=== PATIENT | female | born 1955 | race African-American/Black ===

== ENCOUNTER 2017-04-24 06:06 | Day surgery (SDC) | payer MEDICARE ==
[2017-04-22 11:15] LABS: BASOPHILS 0.2 % (0-2); EOSINOPHILS 1.6 % (0-7); HEMATOCRIT 28.8 % (36.0-48.0); HEMOGLOBIN 9.1 g/dL (12-16); IMMATURE GRANULOCYTES 0.2 % (0-5); LYMPHOCYTES 32.8 % (15-50); MCHC 31.6 g/dL (31.0-37.0); MEAN PLATELET VOLUME 10.4 fL (7.4-10.4); MONOCYTES 8.5 % (2-11); NEUTROPHILS 56.7 % (40-80); PLATELET COUNT 178 10x3/uL (130-400); RBC 3.03 10x6/uL (4.00-5.40); RDW 13.7 % (11.5-14.5); WBC 5.5 10x3/uL (4.8-10.8)
[2017-04-22 11:23] LABS: APTT 31.6 SECONDS (22.8-39.4); INR 1.02 (0.85-1.17); PROTIME 13.3 SECONDS (11.6-15.0)
[2017-04-22 11:32] LABS: ANION GAP 13.8 mmol/L (8-16); CALCIUM 8.4 mg/dL (8.5-10.1); CARBON DIOXIDE 30.2 mmol/L (21.0-32.0)
[~2017-04-24] VITALS: Ht 154.9 cm; Wt 111.1 kg
[~2017-04-24 06:06] MED LIST: ALDACTONE50 MG PO; COREG12.5 MG PO; CYCLOBENZAPRINE10 MG PO; DEPAKOTE250 MG PO; ELAVIL25 MG PO; KLONOPIN0.5 MG PO; LASIX80 MG PO; MECLIZINE HCL25 MG PO; NORVASC5 MG PO; OXYCODONE-ACETAMINOP PO; PHENERGAN25 M1 PO; PROZAC20 MG PO; ROCALTROL0.5 MCG PO; XALATAN 0.0052.5 ML RIGHT EYE; ZOCOR40 MG PO
[2017-04-24 06:56] VITALS: Ht 154.9 cm; Wt 111.1 kg
[2017-04-24] MEDS ORDERED: ULTRAM50 MG PO (10:12)
--- NOTE | 2017-04-24 12:18 | NUR ---
1150--IV DC'D, PT DRESSING AT THIS TIME. SARA NUÑEZ 1203--DISCHARGE INSTRUCTIONS GIVEN, PT VERBALIZES UNDERSTANDING. PT OFF UNIT VIA WC. SARA NUÑEZ
--- NOTE | 2017-04-24 13:08 | OP ---
PATIENT NAME: DONA HPAN MEDICAL RECORD: [id number] :51 LOCATION:[facility] ADMISSION DATE: SURGEON: HUYEN SALAZAR MD DATE OF OPERATION: 04/24/2017 PREOPERATIVE DIAGNOSIS: Chronic kidney disease stage V. POSTOPERATIVE DIAGNOSIS: Chronic kidney disease stage V. REFERRING PHYSICIAN: Dr. Woodrow Garcia. OPERATION PERFORMED: Implantation of a 6 mm straight standard wall thickness Propaten PTFE loop graft in the left upper extremity with origin from the proximal brachial artery and venous outflow via the proximal basilic vein. SURGEON: Huyen Salazar MD ANESTHESIA: General per WRITING MANAGER with an LMA. PREOPERATIVE NOTE: This elderly -[place] female has chronic kidney disease and it is anticipated she will require dialysis soon. She was referred to me for creation of a preemptive long-term access. She has very small vessels and I think that she will be much better with a graft than attempts at fistulas. I thought that she will require dialysis soon enough to warrant going ahead with the graft implantation today. Under general anesthesia with LMA per WRITING MANAGER, the patient was positioned supinely on the operating table and the left upper extremity prepped and draped in a sterile manner. I examined her arm with ultrasound using a [place] drain as a proximal venous tourniquet and found indeed that her peripheral veins were small and I again felt that a graft was appropriate and as she is diabetic and I did see atherosclerotic calcifications in her brachial and axillary artery, I thought she would have less likelihood of a significant steal syndrome with a proximal origin for her graft. I made a longitudinal incision along the medial aspect of the upper arm near the axilla and exposed the proximal brachial artery and proximal basilic vein. These vessels were dissected and controlled with Silastic loops and treated with topical papaverine. I chose a Propaten PTFE graft 6-mm straight standard wall thickness. I beveled one end and then anastomosed it end-to-side to the vein with running 6-0 Prolene. After the vein was opened, it was flushed proximally with heparinized saline. No systemic anticoagulation otherwise was administered. A counterincision was made just above the antecubital space and the graft was placed in a subcutaneous tunnel, very close to the overlying skin as close as I could get it and brought back to the upper arm incision where it was shortened and beveled and anastomosed end-to-side to the artery again with running 6-0 Prolene after the artery was flushed proximally and distally with heparinized saline. The anastomoses both were treated with topical Evicel and when the clamps and loops were released, excellent flow was immediately established in the new AV graft and the suture lines were hemostatic. Good Doppler flow was present in the axillary artery proximal and distal to the anastomosis and in the proximal vein. There was continuous pulsatile flow signal. The flow was preserved in the radial artery at the wrist as demonstrated by Doppler, although somewhat diminished when the graft was opened. OPERATIVE REPORT [id number] DONA PHAN I irrigated the wounds with Ancef and gentamicin solution. The wounds were infiltrated and irrigated with 0.25% Marcaine without epinephrine. Subcutaneous tissues were approximated without the use of a drain with interrupted inverted 3-0 Vicryl and skin was closed with running intracuticular 4-0 Monocryl and Dermabond glue. Both incisions were dressed with Maxorb Ag, Tegaderm and Cavilon skin prep. The patient was awakened and returned to the recovery room in stable condition with a good bruit audible over the graft. Blood loss during the operation was essentially nil. All sponges, instruments, and needles were accounted for. No drain was used and no surgical specimen was submitted for histopathology. PLAN: I will allow the patient to go home today. She will be instructed to call on Thursday for an appointment time to return to see me in my office on of next week. She can leave the initial operative dressings intact until that time and she may shower and wash over them with soap and water. She is to continue her home medications and usual renal diabetic diet and her usual activities as tolerated. She is given a prescription for tramadol 50 mg, 20 tablets. She can take one or if necessary two p.o. q.4 hours p.r.n. pain. TRANSINT:[id number] Voice Confirmation ID: [id number] DOCUMENT ID: [id number] HUYEN SALAZAR MD at 1308 CC: ORA GARCIA MD [id number] DICTATION DATE: 04/24/17 1056 TITLE I TEACHER: 04/24/17 1142 [facility] 04/24/17 [id number] [place] [address]
== END 2017-04-24 12:03 | disposition home or self-care (01) ==
LOC: D.OPS 06:06 → D.PAN 08:00 → D.OPS 08:00
PROVIDERS: Surgery
DX: I13.0 Hypertensive heart and chronic kidney disease with heart failure and stage 1 through stage 4 chronic kidney disease, or unspecified chronic kidney disease (principal); E11.22 Type 2 diabetes mellitus with diabetic chronic kidney disease; N18.4 Chronic kidney disease, stage 4 (severe); F17.200 Nicotine dependence, unspecified, uncomplicated; K44.9 Diaphragmatic hernia without obstruction or gangrene; K21.9 Gastro-esophageal reflux disease without esophagitis; E66.01 Morbid (severe) obesity due to excess calories; Z68.42 Body mass index [BMI] 45.0-49.9, adult; Z01.812 Encounter for preprocedural laboratory examination

== ENCOUNTER → 2020-10-22 17:00 | Outpatient (CLI) | payer MEDICARE ==
[2017-04-24 06:56] VITALS: BMI 46.4
[~2020-10-22 17:00] MED LIST changes: +ULTRAM50 MG PO
[2020-10-22 17:20] LABS: BASOPHILS 0.5 % (0-2); EOSINOPHILS 1.1 % (0-7); HEMATOCRIT 29.6 % (36.0-48.0); HEMOGLOBIN 9.4 g/dL (12-16); LYMPHOCYTES 33.8 % (15-50); MCH 31.8 pg (26.0-34.0); MCHC 31.9 g/dL (31.0-37.0); MCV 99.7 fL (80.0-100.0); MEAN PLATELET VOLUME 8.4 fL (7.4-10.4); MONOCYTES 8.6 % (2-11); PLATELET COUNT 204 10x3/uL (130-400); RBC 2.97 10x6/uL (4.00-5.40); RDW 14.4 % (11.5-14.5); WBC 7.5 10x3/uL (4.8-10.8)
[2020-10-22 18:14] LABS: ALBUMIN 2.8 g/dL (3.4-5.0); ANION GAP 17.8 mmol/L (8-16); BILIRUBIN - TOTAL 0.23 mg/dL (0.2-1.3); CALCIUM 9.4 mg/dL (8.5-10.1); CARBON DIOXIDE 25.8 mmol/L (21.0-32.0); CHOL - HDL RATIO 2.2 ratio (2.3-4.1); CREATININE - SERUM 6.4 mg/dL (0.6-1.3); LDL-HDL RATIO 0.9 ratio (1.5-3.5); POTASSIUM - SERUM 4.6 mmol/L (3.5-5.1); PROTEIN - SERUM 6.2 g/dL (6.4-8.2)
== END | disposition home or self-care (01) ==
LOC: D.LABREF 17:00
PROVIDERS: ATTEND Family Medicine
DX: Z51.81 Encounter for therapeutic drug level monitoring (principal)